=== PATIENT | female | born 1965 | race Caucasian/White ===

== ENCOUNTER 2024-05-12 09:23 | Outpatient (CLI) | payer OTHER, SELFPAY ==
--- NOTE | ~2024-05-12 | US_ITS ---
EXAMINATION: US retroperitoneal comp DATE: 05/12/2024 09:54 INDICATION: CKD 3b TECHNIQUE: Multiple grayscale and Doppler ultrasound images of the kidneys were obtained. COMPARISON: None. FINDINGS: Exam limited by body habitus. The right kidney measures 10.1 x 4.5 x 5.1 cm. The left kidney measures 10.8 x 4.6 x 4.0 cm. The kidneys demonstrate normal parenchymal echogenicity, with likely bilateral renal cortical thinning. 1.2 cm simple exophytic right kidney cyst. 1.4 cm echogenic right kidney foc us with posterior shadowing, likely kidney stone. 1.1 cm echogenic focus in the left kidney without p osterior shadowing. There is no hydronephrosis. The bladder is poorly visualized. IMPRESSION: Somewhat limited examination. Findings suggestive of medical renal disease. 1.1 cm indeterminate echo genic focus in the left kidney. Likely 1.4 cm stone in the right kidney. Simple appearing exophytic r ight kidney cyst. Consider CT of the abdomen and pelvis without and with contrast for further evaluat ion. Reviewed, dictated and finalized at location K. RINARIAN IMPRESSION: Somewhat limited examination. Findings suggestive of medical renal disease. 1.1 cm indeterminate echogenic focus in the left kidney. Likely 1.4 cm stone in th e right kidney. Simple appearing exophytic right kidney cyst. Consider CT of th e abdomen and pelvis without and with contrast for further evaluation.
== END 2024-05-12 09:24 | disposition home or self-care (01) ==
LOC: MICIMG 09:26
PROVIDERS: PCP Internal Medicine; Visit Provider Specialist
DX: N18.31 Chronic kidney disease, stage 3a (principal)
CPT/HCPCS: 76770

== ENCOUNTER 2024-09-08 08:09 | Outpatient (CLI) | payer OTHER, SELFPAY ==
--- NOTE | ~2024-09-08 | MR_ITS ---
MRI of the abdomen: Clinical indication: Kidney cyst. Technique Coronal SSFSE ARC, WATER:coronal LAVA-FLEX, Coronal 2D FIESTA FatSat, Axial SSFSE BH ARC, A xial 3D DualEcho BH, Axial SSFSE-IR, Axial DWI b=500, Axial 2D FIESTA FatSat, pre and dynamic postcon trast Axial LAVA ARC, postcontrast Coronal In and Opposed phase LAVA FLEX. Findings: Gallbladder absent. The common bile duct is normal in course and caliber. No filling defect s are seen within the CBD. No evidence of intrahepatic biliary ductal dilatation. The pancreatic duct is normal in size. Suspected mild fatty infiltration of liver. No focal hepatic mass evident. Spleen, pancreas, adrenals , kidneys appear normal. The aorta and the paraaortic regions appear normal. Impression: No overtly suspicious renal lesion seen. Postcontrast imaging would be useful for more complete evalu ation, and should be considered for further evaluation. Probable mild fatty infiltration of liver. Reviewed, dictated and finalized at location . Impression: No overtly suspicious renal lesion seen. Postcontrast imaging would be useful f or more complete evaluation, and should be considered for further evaluation. Probable mild fatty infiltration of liver.
== END 2024-09-08 08:10 | disposition home or self-care (01) ==
LOC: MICIMG 08:10
PROVIDERS: PCP Internal Medicine; Visit Provider Specialist
DX: N28.1 Cyst of kidney, acquired (principal)
CPT/HCPCS: 74181

== ENCOUNTER 2024-09-08 08:12 | Outpatient (CLI) | payer OTHER, SELFPAY ==
--- NOTE | ~2024-09-08 | XR_ITS ---
XR shoulder RT min 2V Ordering provider: Gilma Quick, [employer] History: . Bilateral shoulder pain . Comparison: None. FINDINGS: BONES: No acute fracture or dislocation. Degenerative changes seen in the greater tuberosity which may indicate rotator cuff disease. Clinical correlation advised. JOINT SPACES: The acromioclavicular joint shows moderate osteoarthritic changes.. The glenohumeral tanvir int is normal. SOFT TISSUES: Normal. IMPRESSION: No acute osseous abnormality right shoulder. Osteoarthritic changes of the acromioclavicular joint. Reviewed, dictated and finalized at location A.
--- NOTE | ~2024-09-08 | XR_ITS ---
XR shoulder LT min 2V Ordering provider: Gilma Quick, [employer] History: . Bilateral shoulder pain . Comparison: None. FINDINGS: BONES: No acute fracture or dislocation. Degenerative changes seen in the area of the greater tuberosity which may indicate rotator cuff disea se. Clinical correlation advised. JOINT SPACES: The acromioclavicular joint shows moderate osteoarthritic changes.. The glenohumeral tanvir int is normal. SOFT TISSUES: Normal. IMPRESSION: No acute osseous abnormality left shoulder. Moderate osteoarthritic changes of the left acromioclavicular joint. Reviewed, dictated and finalized at location A.
== END 2024-09-08 08:13 | disposition home or self-care (01) ==
LOC: MICIMG 08:13
PROVIDERS: PCP Internal Medicine; Visit Provider Nurse Practitioner Family
DX: M19.011 Primary osteoarthritis, right shoulder (principal); M19.012 Primary osteoarthritis, left shoulder
CPT/HCPCS: 73030